=== PATIENT | female | born 1960 | race Caucasian/White ===

== ENCOUNTER 2022-12-31 10:04 | Emergency (ER) | payer MEDICAID, SELFPAY ==
[2022-12-31] VITALS (16 sets, daily range): BP systolic 114–168; BP diastolic 56–79; PULSE 63–83; RESP 9–22; TEMP 36.6; O2SAT 96–100
--- NOTE | 2022-12-31 10:00 | RT.EKG_ITS ---
APPROVED REPORT Exam: Resting ECG Reason for Exam: afib Patient Location: E HR:71 bpm ECG Measurements Heart Rate 71 AXIS NE 197 P 28 QRSd 93 QRS -12 QT 380 T 18 QTc 413 Conclusion Sinus rhythm...normal P axis, V-rate 60- 99 Left ventricular hypertrophy...multiple voltage criteria sinus rhythm, left axis, normal intervals, non ishcemic
--- NOTE | 2022-12-31 10:18 | DI.RAD_ITS ---
Exam(s) XR PORTABLE CHEST AP EXAM: XR PORTABLE CHEST AP CLINICAL HISTORY: palpitations TECHNIQUE: 2D digital imaging was performed. COMPARISON: No exams were available for comparison FINDINGS: Leads overlie the chest. LUNGS: Clear. No pleural abnormality seen. HEART: Normal size. AORTA: Normal diameter. BONES: Unremarkable for age. Soft tissues: Unremarkable. IMPRESSION: No acute findings. DATA REPOSITORY: RADIATION DOSE DELIVERED:
--- NOTE | 2022-12-31 10:19 | ED.GENADUL_ITS ---
Discharge Plan Disposition Patient Disposition: Home Discharge Details Clinical Impression: Palpitations Primary Care Provider: Melony,Local ED Provider: Eric Luna Home Meds and New Rx's Prescriptions: No Action ipratropium-albuterol 0.5 mg-3 mg(2.5 mg base)/3 mL solution for nebulization 3 ml INHALATION 6X/DAY PRN (Reason: Respiratory Distress) Patient Comments: INHALE THE CONTENTS OF ONE VIAL VIA NEBULIZER EVERY 6 HOURS benzonatate 200 mg capsule 200 mg PO 1XD Patient Comments: TAKE ONE CAPSULE BY MOUTH TWICE A DAY NEEDED FOR COUGH clonazepam 1 mg tablet 1 mg PO 2XD PRN (Reason: restlessness) Patient Comments: TAKE ONE TABLET BY MOUTH TWICE A DAY (30 DAYS) fluticasone propionate 50 mcg/actuation spray,suspension 50 mcg INTRANASAL 1XD Patient Comments: INHALE 1 SPRAY IN EACH NOSTRIL DAILY Advair HFA 230-21 mcg/actuation HFA aerosol inhaler 230 inh INHALATION 2XD Patient Comments: INHALE 2 PUFFS BY MOUTH INTO THE LUNGS TWICE DAILY atorvastatin 20 mg tablet 20 mg PO 1XD Patient Comments: TAKE ONE TABLET BY MOUTH EVERY DAY amlodipine 5 mg tablet 5 mg PO 1XD Patient Comments: TAKE ONE TABLET BY MOUTH EVERY DAY omeprazole 20 mg capsule,delayed release(DR/EC) 20 mg PO 1XD Patient Comments: TAKE ONE CAPSULE BY MOUTH TWICE A DAY albuterol sulfate [Ventolin HFA] 90 mcg/actuation HFA aerosol inhaler 90 mcg INHALATION 6XD PRN Patient Comments: INHALE TWO PUFFS BY MOUTH EVERY 4 HOURS FOR 30 DAYS NEEDED FOR WHEEZING dicyclomine 10 mg capsule 10 mg PO 3XD PRN Patient Comments: TAKE ONE CAPSULE BY MOUTH THREE TIMES A DAY NEEDED duloxetine 30 mg capsule,delayed release(DR/EC) 30 mg PO 1XD Patient Comments: TAKE ONE CAPSULE BY MOUTH EVERY DAY ; DO NOT CRUSH OR CHEW Discharge Instructions Instructions: Heart Palpitations (ED) Additional Instructions: Please follow with your primary care physician. Please follow instructions for Holter monitor care and follow-up. Discharge Orders Other Ambulatory Orders: Holter Monitor (STAT) Timeframe: 20230107 Facility: [facility] - Location: Respiratory Therapy Ordered By: Eric Luna Medical Decision Making 62-year-old female history of asthma, recently started on Advair presents with intermittent palpitations over the last several days associate with left neck discomfort and lightheadedness. Patient is alert oriented nontoxic afebrile nonhypoxic nontachycardic, regular rhythm on monitor and regular palpable strong pulses radially. Mildly hypertensive in arrival however slightly anxious. No peripheral edema. Consider anxiety versus symptomatic beta agonist use versus less likely PE versus unlikely pneumonia pneumothorax or aortic pathology lower suspicion for ACS however will obtain basic labs troponin chest x-ray EKG. EKG normal sinus rhythm left axis normal intervals T wave inversion lead III otherwise nonischemic did see PVC on monitor while in room with patient. If labs and imaging unremarkable likely home with Holter monitor and close follow- up with primary care team. 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 Mild hypomagnesemia. No respiratory distress. Will have respiratory team fit patient with Holter monitor. Patient with with her primary care team. HPI General Date/Time Provider Initiated Documentation: 12/31/22 10:17 . HPI Narrative: 62-year-old female history of asthma recently started on Advair, presents with intermittent palpitations sensation of fast heart rate over the past several days, intermittent lightheadedness and pain rating to her left neck. Related Data Home Medications Medication Instructions Recorded Confirmed albuterol sulfate 90 mcg/actuation 90 mcg inhalation 6XD PRN 12/31/22 12/31/22 aerosol inhaler (Ventolin HFA) amlodipine 5 mg tablet 5 mg PO 1XD 12/31/22 12/31/22 atorvastatin 20 mg tablet 20 mg PO 1XD 12/31/22 12/31/22 benzonatate 200 mg capsule 200 mg PO 1XD 12/31/22 12/31/22 clonazepam 1 mg tablet 1 mg PO 2XD PRN restlessness 12/31/22 12/31/22 dicyclomine 10 mg capsule 10 mg PO 3XD PRN 12/31/22 12/31/22 duloxetine 30 mg capsule,delayed 30 mg PO 1XD 12/31/22 12/31/22 release fluticasone propionate 230 230 inh inhalation 2XD 12/31/22 12/31/22 mcg-salmeterol 21 mcg/actuation HFA inhaler (Advair HFA) fluticasone propionate 50 50 mcg intranasal 1XD 12/31/22 12/31/22 mcg/actuation nasal spray,suspension ipratropium 0.5 mg-albuterol 3 mg 3 ml inhalation 6X/DAY PRN 12/31/22 12/31/22 (2.5 mg base)/3 mL nebulization Respiratory Distress soln omeprazole 20 mg capsule,delayed 20 mg PO 1XD 12/31/22 12/31/22 release Allergies Allergy/AdvReac Type Severity Reaction Status Date / Time codeine AdvReac Intermediate Other (See Unverified 12/31/22 10:35 Comment) General Stated Complaint: Palpitatns JESUS: 2 Review of Systems Narrative: Review of Systems Constitutional: negative Eyes: negative ENT: negative Cardiovascular: Palpitations Respiratory: negative Gastrointestinal: negative : negative Musculoskeletal: negative Skin: negative Neurologic: negative Psych: negative PFSH All Active Problems (Updated 12/31/22 @ 11:17 by Eric Luna MD) Palpitations (Acute) Social History Smoking/Tobacco Use Status: Never Smoking risk assessment performed?: Yes Alcohol Intake: current Substance use type: does not use Do you feel safe at home: Yes Do you feel safe in your relationship?: Yes Exam Narrative Exam Narrative: Physical Examination General: alert, awake, cooperative, resting comfortably, no acute distress HEENT: normocephalic, atraumatic; PERRL, EOM intact, conjunctiva normal; no nasal discharge; moist mucous membranes, oral and pharyngeal mucosa normal, tolerating secretions Neck: supple, trachea midline; full ROM Chest: normal to inspection Respiratory: normal respiratory effort, speaking in full sentences, clear to auscultation, no wheezing, rales or rhonchi Cardiac: regular rate, regular rhythm, S1S2 intact, no murmurs rubs or gallops GI: abdomen soft, non-tender, non-distended; no palpable mass or hepatosplenomegaly Skin: no lesions, rashes or trauma appreciated Neuro: AAOx3, normal speech, moving all extremities Extremities: No peripheral edema Psych: Appropriate mood and affect Course Vital Signs Vital signs: Vital Signs Temperature 36.6 C 12/31/22 10:09 Pulse 82 12/31/22 10:09 Respiratory Rate 16 12/31/22 10:09 Blood Pressure 168/79 H 12/31/22 10:09 Pulse Oximetry 100 03/30/23 10:09 Temperature 36.6 C 12/31/22 10:09 Temperature Source Skin 12/31/22 10:09 Pulse 82 12/31/22 10:09 Respiratory Rate 16 12/31/22 10:09 Blood Pressure 168/79 H 12/31/22 10:09 Pulse Oximetry 100 12/31/22 10:09 Oxygen Delivery Method Room Air 12/31/22 10:09 Oxygen Flow Rate 0 12/31/22 10:09 Pain Level 0 12/31/22 10:09
[2022-12-31 10:32] LABS: Abs Immature Grans 0.05 10^3/uL (0.0-0.06); Absolute Basophil Count 0.09 10^3/uL (0.0-0.2); Absolute Eosinophil Count 0.45 10^3/uL (0.0-0.7); Absolute Lymphocyte Count 4.91 10^3/uL (1.2-3.4); Absolute Neutrophil Count 6.38 10^3/uL (1.2-6.7); Basophils % 0.7; Eosinophils % 3.6; HCT 39.9 % (36.0-46.0); HGB 13.2 g/dL (11.2-15.7); Immature Grans % 0.4; Lymphocytes % 39.3; MCH 28.3 pg (27.0-33.0); MCHC 33.1 % (32.0-36.0); MCV 85 fL (80-95); MPV 9.7 fL (8.0-11.0); Platelet Count 331 10^3/uL (130-400); RBC 4.67 10^6/uL (3.93-5.22); RDW 13.2 % (11.7-14.6)
[2022-12-31 10:34] LABS: Absolute Monocyte Count 0.63 10^3/uL (0.1-0.8)
[2022-12-31] MEDS: Aspirin 81 MG CHEW 324 MG CH (10:44)
[2022-12-31] MEDS: Normal Saline 500 ML 1000 ML IV (10:46)
[2022-12-31 11:01] LABS: ALT 47 U/L (14-59); AST 21 U/L (15-37); Albumin 3.8 g/dL (3.4-5.0); Alkaline Phosphatase 98 U/L (46-116); Anion Gap 9.1 mmol/L (3-11); BUN 18 mg/dL (7-18); Bilirubin, Total 0.4 mg/dL (0.2-1.0); CO2 28.9 mmol/L (21.0-32.0); CREATININE 0.9 mg/dL (0.55-1.02); Calcium 9.3 mg/dL (8.5-10.1); Chloride 101 mmol/L (98-107); Estimated GFR 71.39 (mL/min/1.73m2); Glucose 266 mg/dL (74-106); Magnesium 1.7 mg/dL (1.8-2.4); Potassium 3.7 mmol/L (3.5-5.1); Sodium 139 mmol/L (136-145); TSH (W/Ref FT4) 2.05 uIU/mL (0.36-3.74); Total Protein 7.8 g/dL (6.4-8.2); Troponin I < 50 ng/L (<or=60)
--- NOTE | 2023-01-01 14:09 | NUR.NOTE ---
Nursing Note: Pt called to ask questions about her discharge yesterday and to find out how she gets her holter monitor. Questions answered to the best of my ability and then patient was tranfered to respiratory to set up appointment for holter placement.
== END 2022-12-31 11:52 | disposition home or self-care (01) ==
LOC: ER 11:42
PROVIDERS: Emergency Provider Emergency Medicine
DX: R00.2 Palpitations (principal); I10 Essential (primary) hypertension
CPT/HCPCS: 80053; 93005; 96360; 99284; 71045; 83735; 84443; 84484; 85025; 93010